=== PATIENT | female | born 1965 | race Caucasian/White ===

== ENCOUNTER 2017-10-14 19:31 | Inpatient (IN) | payer BC ==
[2017-10-14 21:37] LABS: ADD MAN DIFF? NO
[2017-10-14 21:39] LABS: WHITE BLOOD COUNT 11.6 10^3/ul (4.8-10.8)
[2017-10-14 21:39] LABS: BASOPHILS % 0.3 % (0.0-2.0); EOSINOPHILS % 0.3 % (0.0-7.0); HEMATOCRIT 37.8 % (37.0-47.0); HEMOGLOBIN 12.9 g/dl (12.0-16.0); LYMPHOCYTES # 0.9 10^3/ul (0.8-2.9); LYMPHOCYTES % 7.5 % (15.0-51.0); MEAN CORPUSCULAR HEMOGLOBIN 28.8 pg (29.0-33.0); MEAN CORPUSCULAR HGB CONC 34.1 g/dl (32.0-37.0); MEAN CORPUSCULAR VOLUME 84.4 fl (82.0-101.0); MEAN PLATELET VOLUME 10.5 fl (7.4-10.4); MONOCYTE # 0.7 10^3/ul (0.3-0.9); NEUTROPHIL # 9.9 10^3/ul (1.6-7.5); NEUTROPHILS % 85.2 % (39.0-77.0); PLATELET COUNT 274 10^3/UL (140-415); RED BLOOD COUNT 4.48 10^6/ul (4.20-5.40); RED CELL DISTRIBUTION WIDTH 12.9 % (11.5-14.5)
[2017-10-14 22:00] LABS: ADD UMIC YES; UR ASCORBIC ACID NEGATIVE (NEGATIVE); UR BACTERIA FEW /HPF (NONE SEEN); UR BILIRUBIN (Dip) NEGATIVE (NEGATIVE); UR BLOOD (Dip) NEGATIVE (NEGATIVE); UR CLARITY SLIGHTLY CLOUDY (CLEAR); UR COLOR AMBER (YELLOW); UR GLUCOSE (Dip) 3+ mg/dL (NEGATIVE); UR KETONES (Dip) 2+ mg/dL (NEGATIVE); UR LEUKOCYTE ESTERASE (Dip) NEGATIVE Leu/ul (NEGATIVE); UR NITRITE (Dip) NEGATIVE (NEGATIVE); UR RBC 2 /HPF (0-5); UR SPECIFIC GRAVITY (Dip) 1.036 (1.003-1.030); UR SQUAMOUS EPITHELIAL CELL FEW /HPF (FEW); UR TOTAL PROTEIN (Dip) 1+ mg/dl (NEGATIVE); UR UROBILINOGEN (Dip) 1+ mg/dL (NEGATIVE); UR WBC 8 /HPF (0-5)
[2017-10-14] MEDS: ONDANSETRON 4 MG INJ IV (22:00)
[2017-10-14 22:01] LABS: ALANINE AMINOTRANSFERASE 523 IU/L (13-69); ALBUMIN 4.3 g/dl (3.3-4.9); ALBUMIN/GLOBULIN RATIO 1.13; ALKALINE PHOSPHATASE 310 IU/L (42-121); ANION GAP 20 (8-16); ASPARTATE AMINO TRANSFERASE 92 IU/L (15-46); BILIRUBIN,INDIRECT 0.9 mg/dl (0-1.1); BILIRUBIN,TOTAL 4.5 mg/dl (0.2-1.3); BLOOD UREA NITROGEN 18 mg/dl (7-20); CALCIUM 9.7 mg/dl (8.4-10.2); CARBON DIOXIDE 25 mmol/L (21-31); CHLORIDE 97 mmol/L (97-110); CREATININE 0.57 mg/dl (0.44-1.00); GLUCOSE 354 mg/dl (70-220); POTASSIUM 3.7 mmol/L (3.5-5.1); SODIUM 138 mmol/L (135-144); TOTAL PROTEIN 8.1 g/dl (6.1-8.1)
[2017-10-14] MEDS: SOD CHLORIDE 0.9% 1,000 ML IV (22:01)
[2017-10-14 22:27] LABS: LIPASE 10802 U/L (23-300)
[2017-10-14] MEDS: morphine 10 MG INJ IV (22:35)
[2017-10-15] MEDS ORDERED: ONDANSETRON 4 MG INJ IV (01:00)
[2017-10-15] MEDS ORDERED: ACETAMINOPHEN 325 MG TAB PO (01:00)
[2017-10-15] MEDS: SOD CHLORIDE 0.9% 100 ML (02:35)
[2017-10-15] MEDS: IOHEXOL 300MG/ML 150 ML BTL (02:35)
[2017-10-15] MEDS ORDERED: NACL 0.9% 3 ML SYG IV (05:00)
[2017-10-15] MEDS ORDERED: DOCUSATE SODIUM 100 MG CAP PO (05:00)
[2017-10-15] MEDS ORDERED: BISACODYL (EC) 5 MG TAB PO (05:00)
[2017-10-15] MEDS: SOD CHLORIDE 0.9% 1,000 ML IV ×3 (05:44→17:29)
[2017-10-15 05:54] LABS: ADD MAN DIFF? NO
[2017-10-15 05:58] LABS: WHITE BLOOD COUNT 6.8 10^3/ul (4.8-10.8)
[2017-10-15 05:58] LABS: BASOPHILS % 0.3 % (0.0-2.0); EOSINOPHILS # 0.1 10^3/ul (0.0-0.5); EOSINOPHILS % 1.6 % (0.0-7.0); HEMATOCRIT 33.7 % (37.0-47.0); HEMOGLOBIN 11.5 g/dl (12.0-16.0); LYMPHOCYTES # 1.5 10^3/ul (0.8-2.9); MEAN CORPUSCULAR HEMOGLOBIN 28.8 pg (29.0-33.0); MEAN CORPUSCULAR HGB CONC 34.1 g/dl (32.0-37.0); MEAN CORPUSCULAR VOLUME 84.3 fl (82.0-101.0); MEAN PLATELET VOLUME 10.9 fl (7.4-10.4); MONOCYTE # 0.5 10^3/ul (0.3-0.9); MONOCYTES % 7.9 % (0.0-11.0); NEUTROPHIL # 4.6 10^3/ul (1.6-7.5); NEUTROPHILS % 67.6 % (39.0-77.0); PLATELET COUNT 245 10^3/UL (140-415); RED CELL DISTRIBUTION WIDTH 13.1 % (11.5-14.5)
[2017-10-15 06:18] LABS: CHOLESTEROL 257 mg/dl (100-200)
[2017-10-15 06:18] LABS: CHOL/HDL RATIO 7.5 RATIO; HDL CHOLESTEROL 34 mg/dl (37-92); LDL CHOLESTEROL,CALCULATED 175 mg/dl; TRIGLYCERIDES 241 mg/dl (0-149)
[2017-10-15 06:51] LABS: ALANINE AMINOTRANSFERASE 400 IU/L (13-69); ALBUMIN 3.4 g/dl (3.3-4.9); ALBUMIN/GLOBULIN RATIO 0.97; ALKALINE PHOSPHATASE 270 IU/L (42-121); ANION GAP 15 (8-16); ASPARTATE AMINO TRANSFERASE 87 IU/L (15-46); BILIRUBIN,TOTAL 2.3 mg/dl (0.2-1.3); BLOOD UREA NITROGEN 16 mg/dl (7-20); CARBON DIOXIDE 26 mmol/L (21-31); CHLORIDE 103 mmol/L (97-110); CREATININE 0.52 mg/dl (0.44-1.00); GLUCOSE 249 mg/dl (70-220); POTASSIUM 3.8 mmol/L (3.5-5.1); SODIUM 140 mmol/L (135-144); TOTAL PROTEIN 6.9 g/dl (6.1-8.1)
[2017-10-15 07:23] LABS: HEMOGLOBIN A1C 12.7 % (0-5.9)
[2017-10-15] MEDS ORDERED: GLUCAGON 1 MG INJ IM (09:30)
[2017-10-15] MEDS ORDERED: GLUCOSE GEL 15 GRAM TUBE PO ×2 (09:30)
[2017-10-15] MEDS ORDERED: GLUCOSE GEL 15 GRAM TUBE BUCCAL (09:30)
[2017-10-15] MEDS ORDERED: DEXTROSE 50% 50 ML SYRINGE IV ×2 (09:30)
[2017-10-15] MEDS: HYDROmorphONE 2 MG/ML SYG IV (09:31)
[2017-10-15 09:53] LABS: LIPASE 4822 U/L (23-300)
[2017-10-15 09:57] LABS: IRON 142 ug/dl (35-150)
[2017-10-15 10:06] LABS: % IRON SATURATION 55 % SAT (22-52); TOTAL IRON BINDING CAPACITY 258 ug/dl (241-421)
[2017-10-15] MEDS: INSULIN ASPART [NOVOLOG] 3 ML PEN SC ×3 (11:32→21:03)
[2017-10-15] MEDS: ONDANSETRON 4 MG INJ IV (16:40)
[2017-10-16] MEDS: SOD CHLORIDE 0.9% 1,000 ML IV ×5 (00:49→23:56)
[2017-10-16] MEDS: INSULIN ASPART [NOVOLOG] 3 ML PEN SC ×4 (00:57→12:14)
[2017-10-16] MEDS: ACCU-CHEK XX (02:13)
[2017-10-16] MEDS: hydrALAzine 20 MG INJ IV (05:03)
[2017-10-16 05:18] LABS: ADD MAN DIFF? NO
[2017-10-16 05:22] LABS: BASOPHILS % 0.4 % (0.0-2.0); EOSINOPHILS # 0.2 10^3/ul (0.0-0.5); EOSINOPHILS % 2.8 % (0.0-7.0); HEMATOCRIT 33.1 % (37.0-47.0); HEMOGLOBIN 11.2 g/dl (12.0-16.0); LYMPHOCYTES # 1.6 10^3/ul (0.8-2.9); MEAN CORPUSCULAR HEMOGLOBIN 28.9 pg (29.0-33.0); MEAN CORPUSCULAR HGB CONC 33.8 g/dl (32.0-37.0); MEAN CORPUSCULAR VOLUME 85.5 fl (82.0-101.0); MEAN PLATELET VOLUME 10.5 fl (7.4-10.4); MONOCYTE # 0.5 10^3/ul (0.3-0.9); MONOCYTES % 6.3 % (0.0-11.0); NEUTROPHIL # 4.7 10^3/ul (1.6-7.5); NEUTROPHILS % 65.8 % (39.0-77.0); PLATELET COUNT 261 10^3/UL (140-415); RED BLOOD COUNT 3.87 10^6/ul (4.20-5.40); RED CELL DISTRIBUTION WIDTH 13.5 % (11.5-14.5)
[2017-10-16 05:22] LABS: WHITE BLOOD COUNT 7.1 10^3/ul (4.8-10.8)
[2017-10-16 05:47] LABS: ALANINE AMINOTRANSFERASE 310 IU/L (13-69); ALBUMIN 3.1 g/dl (3.3-4.9); ALBUMIN/GLOBULIN RATIO 0.86; ALKALINE PHOSPHATASE 244 IU/L (42-121); ANION GAP 16 (8-16); ASPARTATE AMINO TRANSFERASE 60 IU/L (15-46); BILIRUBIN,INDIRECT 0.7 mg/dl (0-1.1); BILIRUBIN,TOTAL 0.7 mg/dl (0.2-1.3); BLOOD UREA NITROGEN 16 mg/dl (7-20); CALCIUM 8.6 mg/dl (8.4-10.2); CARBON DIOXIDE 23 mmol/L (21-31); CHLORIDE 107 mmol/L (97-110); CREATININE 0.48 mg/dl (0.44-1.00); GLUCOSE 146 mg/dl (70-220); LIPASE 969 U/L (23-300); POTASSIUM 3.8 mmol/L (3.5-5.1); SODIUM 142 mmol/L (135-144); TOTAL PROTEIN 6.7 g/dl (6.1-8.1)
[2017-10-16] MEDS ORDERED: morphine 2 MG INJ IV (11:00)
[2017-10-16] MEDS ORDERED: INSULIN ASPART [NOVOLOG] 3 ML PEN SC (17:35)
[2017-10-16] MEDS: Insulin NOVOLOG SS MILD Algorithm (SS with meals and bedtime) SC ×2 (17:35→20:17)
[2017-10-16] MEDS: FISH OIL 1,000 MG CAP PO (20:11)
[2017-10-16] MEDS: INSULIN GLARGINE [LANtus] 3 ML PEN SC (20:17)
[2017-10-17] MEDS: ACCU-CHEK XX (02:00)
[2017-10-17 06:17] LABS: ADD MAN DIFF? NO
[2017-10-17 06:23] LABS: BASOPHILS % 0.4 % (0.0-2.0); EOSINOPHILS # 0.2 10^3/ul (0.0-0.5); EOSINOPHILS % 2.3 % (0.0-7.0); HEMATOCRIT 31.3 % (37.0-47.0); HEMOGLOBIN 10.8 g/dl (12.0-16.0); LYMPHOCYTES # 1.9 10^3/ul (0.8-2.9); LYMPHOCYTES % 25.5 % (15.0-51.0); MEAN CORPUSCULAR HEMOGLOBIN 28.7 pg (29.0-33.0); MEAN CORPUSCULAR HGB CONC 34.5 g/dl (32.0-37.0); MEAN CORPUSCULAR VOLUME 83.2 fl (82.0-101.0); MEAN PLATELET VOLUME 10.9 fl (7.4-10.4); MONOCYTE # 0.5 10^3/ul (0.3-0.9); MONOCYTES % 7.1 % (0.0-11.0); NEUTROPHIL # 4.6 10^3/ul (1.6-7.5); NEUTROPHILS % 61.5 % (39.0-77.0); PLATELET COUNT 282 10^3/UL (140-415); RED BLOOD COUNT 3.76 10^6/ul (4.20-5.40); RED CELL DISTRIBUTION WIDTH 13.2 % (11.5-14.5)
[2017-10-17 06:23] LABS: WHITE BLOOD COUNT 7.5 10^3/ul (4.8-10.8)
[2017-10-17] MEDS: SOD CHLORIDE 0.9% 1,000 ML IV ×2 (06:46→17:01)
[2017-10-17 06:52] LABS: ALANINE AMINOTRANSFERASE 219 IU/L (13-69); ALBUMIN 2.9 g/dl (3.3-4.9); ALBUMIN/GLOBULIN RATIO 0.85; ALKALINE PHOSPHATASE 216 IU/L (42-121); ANION GAP 16 (8-16); ASPARTATE AMINO TRANSFERASE 39 IU/L (15-46); BILIRUBIN,INDIRECT 0.5 mg/dl (0-1.1); BILIRUBIN,TOTAL 0.5 mg/dl (0.2-1.3); BLOOD UREA NITROGEN 9 mg/dl (7-20); CALCIUM 8.4 mg/dl (8.4-10.2); CARBON DIOXIDE 21 mmol/L (21-31); CHLORIDE 108 mmol/L (97-110); CREATININE 0.42 mg/dl (0.44-1.00); GLUCOSE 109 mg/dl (70-220); LIPASE 206 U/L (23-300); SODIUM 142 mmol/L (135-144); TOTAL PROTEIN 6.3 g/dl (6.1-8.1)
[2017-10-17 07:02] LABS: POTASSIUM 2.9 mmol/L (3.5-5.1)
[2017-10-17 07:26] LABS: MAGNESIUM 1.7 mg/dl (1.7-2.5)
[2017-10-17] MEDS: Insulin NOVOLOG SS MILD Algorithm (SS with meals and bedtime) SC ×4 (07:30→20:15)
[2017-10-17] MEDS: POTASSIUM CHLORIDE (SR) 20 MEQ TAB PO (08:07)
[2017-10-17] MEDS: INSULIN GLARGINE [LANtus] 3 ML PEN SC (08:10)
[2017-10-17] MEDS: FISH OIL 1,000 MG CAP PO ×2 (08:41→20:10)
[2017-10-17] MEDS: POTASSIUM CHLORIDE 100 ML IVPB ×2 (09:49→12:22)
[2017-10-17 14:18] LABS: HEPATITIS B SURFACE ANTIGEN NEGATIVE (NEGATIVE)
[2017-10-17 14:35] LABS: HEPATITIS B SURFACE ANTIBODY NEGATIVE (NEGATIVE)
[2017-10-17 14:35] LABS: HEPATITIS C VIRAL ANTIBODY NEGATIVE (NEGATIVE)
[2017-10-17] MEDS: hydrALAzine 20 MG INJ IV ×2 (16:05→21:50)
[2017-10-17] MEDS: LOSARTAN 50 MG TAB PO (17:37)
[2017-10-17] MEDS: ACETAMINOPHEN 325 MG TAB PO (21:50)
[2017-10-17] MEDS: DEXAMETHASONE 1 MG TAB PO (23:33)
[2017-10-18] MEDS: ACCU-CHEK XX (02:00)
[2017-10-18] MEDS: FLUTICASONE 0.05% 16 GM NAS SPRAY NASAL (03:05)
[2017-10-18 04:57] LABS: ADD MAN DIFF? NO
[2017-10-18 04:59] LABS: WHITE BLOOD COUNT 6.2 10^3/ul (4.8-10.8)
[2017-10-18 04:59] LABS: BASOPHILS % 0.5 % (0.0-2.0); EOSINOPHILS # 0.1 10^3/ul (0.0-0.5); EOSINOPHILS % 1.8 % (0.0-7.0); HEMATOCRIT 32.8 % (37.0-47.0); HEMOGLOBIN 11.3 g/dl (12.0-16.0); LYMPHOCYTES # 1.5 10^3/ul (0.8-2.9); LYMPHOCYTES % 24.5 % (15.0-51.0); MEAN CORPUSCULAR HEMOGLOBIN 28.8 pg (29.0-33.0); MEAN CORPUSCULAR HGB CONC 34.5 g/dl (32.0-37.0); MEAN CORPUSCULAR VOLUME 83.7 fl (82.0-101.0); MEAN PLATELET VOLUME 10.3 fl (7.4-10.4); MONOCYTE # 0.4 10^3/ul (0.3-0.9); MONOCYTES % 6.8 % (0.0-11.0); NEUTROPHIL # 3.9 10^3/ul (1.6-7.5); NEUTROPHILS % 62.2 % (39.0-77.0); PLATELET COUNT 299 10^3/UL (140-415); RED BLOOD COUNT 3.92 10^6/ul (4.20-5.40); RED CELL DISTRIBUTION WIDTH 13.4 % (11.5-14.5)
[2017-10-18 05:18] LABS: ALANINE AMINOTRANSFERASE 187 IU/L (13-69); ALBUMIN 3.3 g/dl (3.3-4.9); ALBUMIN/GLOBULIN RATIO 1.03; ALKALINE PHOSPHATASE 204 IU/L (42-121); ANION GAP 16 (8-16); ASPARTATE AMINO TRANSFERASE 38 IU/L (15-46); BILIRUBIN,INDIRECT 0.3 mg/dl (0-1.1); BILIRUBIN,TOTAL 0.3 mg/dl (0.2-1.3); BLOOD UREA NITROGEN 7 mg/dl (7-20); CALCIUM 8.8 mg/dl (8.4-10.2); CARBON DIOXIDE 21 mmol/L (21-31); CHLORIDE 109 mmol/L (97-110); GLUCOSE 211 mg/dl (70-220); LIPASE 64 U/L (23-300); POTASSIUM 3.6 mmol/L (3.5-5.1); SODIUM 142 mmol/L (135-144); TOTAL PROTEIN 6.5 g/dl (6.1-8.1)
[2017-10-18] MEDS: Insulin NOVOLOG SS MILD Algorithm (SS with meals and bedtime) SC (08:10)
[2017-10-18] MEDS: INSULIN GLARGINE [LANtus] 3 ML PEN SC (08:11)
[2017-10-18] MEDS: FISH OIL 1,000 MG CAP PO (08:14)
[2017-10-18] MEDS: LOSARTAN 50 MG TAB PO (08:14)
== END 2017-10-18 12:05 | disposition home or self-care (01) | DRG 438 ==
LOC: PP2 10-16 05:56 → E/R 19:31 → MS3 10-15 00:56
DX: K85.10 Biliary acute pancreatitis without necrosis or infection (principal); K83.1 Obstruction of bile duct; E11.65 Type 2 diabetes mellitus with hyperglycemia; E11.69 Type 2 diabetes mellitus with other specified complication; E78.2 Mixed hyperlipidemia; D50.9 Iron deficiency anemia, unspecified; E66.01 Morbid (severe) obesity due to excess calories; K76.0 Fatty (change of) liver, not elsewhere classified; Z87.891 Personal history of nicotine dependence
CPT/HCPCS: 36415; 74177; 74181; 76705; 80053; 80061; 81001; 82533; 82728; 82962; 83036; 83540; 83690; 83735; 84443; 85025; 86706; 86803; 87086; 87340; 96374; 96375; 99285-25

== ENCOUNTER 2018-01-08 09:40 | Day surgery (SDC) | payer BC ==
[~2018-01-08 09:40] MED LIST: CEFAZOLIN 1 GM INJ; CEFAZOLIN 2 GM/50 ML (PMX) 50 ML IVPB
[2018-01-08] MEDS: INSULIN REGULAR, HUMAN 100 UNIT/1 ML 3ML VIAL IVP (11:08)
[2018-01-08] MEDS ORDERED: BUPIVACAINE 0.25% (MPF) 30 ML INJ (12:29)
[2018-01-08] MEDS ORDERED: LIDOCAINE 1%/EPI 30 ML INJ (12:29)
[2018-01-08] MEDS ORDERED: HYDROCODONE/APAP (5/325) TAB PO ×2 (12:30)
[2018-01-08] MEDS ORDERED: ONDANSETRON 4 MG INJ IV ×2 (12:30→15:00)
[2018-01-08] MEDS ORDERED: morphine 2 MG INJ IV (12:30)
[2018-01-08] MEDS: LIDOCAINE 1%/EPI 30 ML INJ INJ (12:35)
[2018-01-08] MEDS: BUPIVACAINE 0.25% (MPF) 30 ML INJ INJ (12:35)
[2018-01-08] MEDS ORDERED: MEPERIDINE 100 MG INJ (12:48)
[2018-01-08] MEDS ORDERED: PROPOFOL 20 ML (12:48)
[2018-01-08] MEDS ORDERED: GLYCOPYRROLATE 0.4 MG INJ ×3 (12:48→13:16)
[2018-01-08] MEDS ORDERED: NEOSTIGMINE 3 MG/3 ML SYRINGE ×2 (12:48→13:16)
[2018-01-08] MEDS ORDERED: ROCURONIUM 50 MG INJ (12:48)
[2018-01-08] MEDS ORDERED: LIDOCAINE 2% (SDV) 5 ML INJ (12:48)
[2018-01-08] MEDS ORDERED: SUCCINYLCHOLINE CHLORIDE 100 MG/5 ML SYG IV (12:48)
[2018-01-08] MEDS ORDERED: EPHEDrine 50 MG INJ (13:16)
[2018-01-08] MEDS ORDERED: metroNIDAZOLE 500 MG/NS (PMX) 100 ML IVPB (13:19)
[2018-01-08] MEDS ORDERED: METOCLOPRAMIDE 10 MG INJ (14:05)
[2018-01-08] MEDS ORDERED: ONDANSETRON 4 MG INJ (14:05)
[2018-01-08] MEDS ORDERED: hydrALAzine 20 MG INJ IV (15:00)
[2018-01-08] MEDS ORDERED: HYDROmorphONE 1 MG/5 ML IV SYRINGE IV ×2 (15:00)
[2018-01-08] MEDS ORDERED: LABETALOL HCL 20MG INJ IV (15:00)
[2018-01-08] MEDS ORDERED: MEPERIDINE 25 MG INJ IV (15:00)
[2018-01-08] MEDS ORDERED: MIDAZOLAM 1 MG/ML 2 ML INJ IV (15:00)
[2018-01-08] MEDS ORDERED: OXYCODONE/ACETAMINOPHEN (5/325) TAB PO ×2 (15:00)
[2018-01-08] MEDS ORDERED: DIPHENHYDRAMINE 50 MG INJ IV (15:00)
[2018-01-08] MEDS ORDERED: METOCLOPRAMIDE 10 MG INJ IV (15:00)
[2018-01-08] MEDS ORDERED: EPHEDrine SULFATE 50 MG/5 ML SYG IV (15:00)
[2018-01-08] MEDS ORDERED: FENTAnyl 50 MCG/ML VIAL IV ×3 (15:00)
[2018-01-08] MEDS: HYDROmorphONE 1 MG/5 ML IV SYRINGE IV (15:36)
== END 2018-01-08 16:37 | disposition home or self-care (01) ==
LOC: SDS 09:40
DX: K80.10 Calculus of gallbladder with chronic cholecystitis without obstruction (principal); K76.0 Fatty (change of) liver, not elsewhere classified; I10 Essential (primary) hypertension; E78.5 Hyperlipidemia, unspecified; E66.09 Other obesity due to excess calories; E11.9 Type 2 diabetes mellitus without complications
CPT/HCPCS: 47379; 82962